=== PATIENT | male | born 1950 | race Caucasian/White ===

== ENCOUNTER 2017-04-08 06:45 | Inpatient (IN) | payer MEDICARE, BC ==
[~2017-04-08] VITALS: Ht 185.4 cm; Wt 99.0 kg
--- NOTE | ~2017-04-08 | HP ---
History And Physical [id number] [place]. [address] NAME: ANDREW GOODRICH : 46 STATUS : ADM IN [facility]#: [id number] AGE: 66 ADM/REG DATE : 04/08/17 MR#: [id number] REPORT SERV DATE: 04/09/17 DICTATED BY: LOLITA TEIXEIRA DATE: 04/09/17 REPORT STATUS : Draft TRANSCRIBED BY: KEVIN DATE: 04/09/17 DATE OF ADMISSION: 04/08/2017 CHIEF COMPLAINT: Back pain. HISTORY OF PRESENT ILLNESS: Andrew Goodrich is a 66-year-old patient, whom fell on 04/05/2017 from the second to top rung of a 6 feet ladder while he was cleaning his RV. He laid down his back, had immediate and severe back pain. Still has bilateral leg pain. He has not been able to stand since then, was transported emergently to [facility], where he was found to have an L3 burst fracture. He is on Coumadin. His INR has been elevated. They have been working on getting his INR down to a therapeutically appropriate level for surgery, and was subsequently transferred for surgical intervention. At the time of my examination, the patient tells me he is able to urinate. He has had prostate surgery, so has some underlying difficulty related to that. He denies bowel dysfunction. REVIEW OF SYSTEMS: A 10-point review of systems, again unclear about bowel and bladder function. Positive for back and leg pain. PAST MEDICAL HISTORY: 1. Hypertension. 2. Coronary artery disease, status post WA as well as CABG. 3. Prostate cancer status post surgery and radiation therapy. 4. History of DVT, currently treated with Coumadin. PAST SURGICAL HISTORY: As above. Also includes appendectomy and right shoulder surgery. HOME MEDICATIONS: Coreg, Xanax, lisinopril, Coumadin 7.5 mg a day, Lipitor, coenzyme, Percocet, Cymbalta, and Mirapex. SOCIAL HISTORY: Smokes two or three cigars a day. Rarely drinks. Does not use drugs. I believe he is retired. FAMILY HISTORY: Positive for heart disease. ALLERGIES: ALLERGIC TO PENICILLIN. PHYSICAL EXAMINATION: VITAL SIGNS: The patient is 6 feet 1 inch, 218 pounds. Temperature 99.8, heart rate 89, respiratory rate 18, and blood pressure 155/70. ORTHOPEDIC EXAMINATION: Reveals tenderness in the back, in the mid lumbar region. There is no bogginess or step-off; however, the skin is intact. NEUROLOGIC: Reveals symmetric pin prick and light touch in both legs; however, he does have weakness in both hip flexors and quads, 3/5 bilaterally, ankle, dorsiflexion, plantar flexion as well as EHL is 4 to 5/5. He does have positive straight leg raise bilaterally causing leg pain, has hypoactive patellar and Achilles reflexes. He has normal sensation in History And Physical [address] [address] NAME: ANDREW GOODRICH : 46 STATUS : ADM IN [facility]#: [id number] AGE: 66 ADM/REG DATE : 04/08/17 MR#: [id number] REPORT SERV DATE: 04/09/17 DICTATED BY: LOLITA TEIXEIRA DATE: 04/09/17 REPORT STATUS : Draft TRANSCRIBED BY: KEVIN DATE: 04/09/17 the peroneal region. LABORATORY TESTS: This morning show an INR of 1.2 and a hematocrit of 43.4. Recent x-rays were reviewed and showed a what appears to be a burst fracture of L3 vertebral body with fragmentation of the body. Recent MRI confirms this. There is traumatic retropulsion of bone into the canal occupying 80% to 90% of the canal. IMPRESSION AND PLAN: L3 burst fracture with severe canal compromise as well as weakness in the hips and the quads. Plan: L3 corpectomy with reconstruction with cage as well as plate. Depending on bone quality, he may require stage II with posterior instrumentation. Procedure risks, benefits, and alternatives were discussed with him. Risks discussed include, but not limited to bleeding, infection, neurologic injury including injury to the spinal cord and nerve roots. Collapse of the cage requiring posterior instrumentation and revision. Spinal fluid leaks, deep hematoma seroma. Injury to the great vessels as well as viscera from the approach. Position complication such pressures sores, nerve palsies, eye injury, and medical complications such as heart attack, strokes, blood clots, pneumonia, and . Informed consent was obtained. DUONG Lolita Teixeira MD / [id number] CC: Bong Ray M.D.
--- NOTE | ~2017-04-08 | OP ---
Record Of Operation [facility] [address] [place]. [address] NAME: ANDERW GOODRICH : 46 STATUS : ADM IN PAT#: [id number] AGE: 66 ADM/REG DATE : 04/08/17 MR#: [id number] REPORT SERV DATE: 04/10/17 DICTATED BY: LOLITA TEIXEIRA DATE: 04/10/17 REPORT STATUS : Draft TRANSCRIBED BY: MODL DATE: 04/10/17 DATE OF PROCEDURE: PREOPERATIVE DIAGNOSIS: L3 burst fracture with critical stenosis. POSTOPERATIVE DIAGNOSIS: L3 burst fracture with critical stenosis. PROCEDURE: 1. L3 corpectomy with spinal canal decompression. 2. Body reconstruction with a cage. 3. Anterior plate fusion. 4. Local bone graft admixed with synthetic bone graft. 5. Navigation-assisted procedure. CO-SURGEON: Dr. Pineda. ASSISTANTS: Jordan and Santiago. FLUIDS: 2800 mL LR, 250 mL of Cell Saver packed red blood cells. BLOOD LOSS: 500 mL. URINE OUTPUT: 150 mL. ANESTHESIA: General. INSTRUMENTATION: Globus Fortify cage with a 20 mm core; 41-64 mm in height with upper end plate measuring 22 x 40 mm, 4-degree lordosis; lower plate 22 x 40 also with 4-degree lordosis. Local bone graft admixed with Kinex Bioactive putty to be packed in and around the cage, Synthes plate 7-8 mm TSLP with two 5.5 x 39 mm screws anteriorly and two 5.5 x 45 mm posteriorly. INDICATIONS: Andrew Goodrich is a 66-year-old patient who fell from the top of a 6-foot ladder several days ago sustaining an L3 burst fracture. He was unable to walk due to leg pain and weakness immediately thereafter. Imaging has showed significant stenosis at L3-4. He has been in an outside hospital for several days prior to the surgery due to the canal compromise as well as neurologic signs and symptoms. The patient was indicated for an L3 decompression in the form of an anterior approach. I felt that given the injury there was a good chance the patient had good bone density. Intraoperatively, I verified this I recommend a corpectomy with cage reconstruction and plating. The procedure as well as the risks and alternatives were discussed with him and his . I suggested the aid of a vascular surgeon during approach to minimize the risk risk related to the approach including major vascular injury causing life-threatening bleeding, visceral injury causing infection or ileus. Bleeding requiring transfusion. Nerve injury including nerve root or cauda equina syndrome. Spinal fluid leaks. Nonunion and malunion, adjacent level of disease, subsidence of the cage requiring Record Of Operation [address] [place]. [address] NAME: ANDREW GOODRICH : 46 STATUS : ADM IN PAT#: [id number] AGE: 66 ADM/REG DATE : 04/08/17 MR#: [id number] REPORT SERV DATE: 04/10/17 DICTATED BY: LOLITA TEIXEIRA DATE: 04/10/17 REPORT STATUS : Draft TRANSCRIBED BY: KEVIN DATE: 04/10/17 revision with posterior instrumentation. Position complication such as pressure sores, nerve palsies, blindness, medical complications such as heart attack, strokes, blood clots, pneumonia, and . Informed consent obtained. DESCRIPTION OF PROCEDURE: The patient was identified in the holding room and surgery as well as risks and alternatives were discussed with them. He is taken back to the operating room, where all standard cardiopulmonary monitors were attached. After smooth induction general endotracheal anesthesia, he was very carefully positioned in a right lateral decubitus position with the left side up. A bump was placed underneath his flank and an axillary roll was placed. This is a true lateral position and this was verified with fluorography. He was taped at the shoulder and hips as well as the legs. The flank and abdomen as well as back were prepped and draped in the usual sterile surgical fashion. Biplanar fluoro imaging were brought and the incision site was then marked. The approach was then performed by Dr. Pineda and his facilities assistant. Please see his note for that. Excellent exposure was obtained of the L3 body as well as the inferior L2 and the superior L4 bodies for the plate placement. At this point, a small incision was then made in the lateral iliac crest. The navigation post was then used to dissect down to the lateral iliac crest, it was impacted, and bicortical purchase was obtained, and the ray was then placed on the post and the O-arm was brought in for a spin. With the aid of the navigation probe, I defined the outlines of my corpectomy as well as . A 15 blade was then used to outline my disk spaces above and below the L3. Thorough diskectomy was performed at both levels with a combination of pituitary rongeurs and curettes. I got back as far as I could safely and navigation assisted me telling me where the spinal canal was. At this point, I outlined the anterior vertebral body and then about 5 mm posterior to it with an osteotome. I used an osteotome to cut the bone to leave an anterior shell. I impacted this down to about 40 mm, which is what my navigation allowed me to do safely. I then took the osteotome, cut the posterior body just anterior to the posterior cortex. This chunk in the midline was then removed with a rongeur, given to the back table to morcellize after placing in the cage. I continued my trough out in the middle till I got down to the contralateral pedicle. Again I was able tell this with my navigation. I then carefully expose the back of the wall as well as the foramina, resected the L3 pedicle on the up side with a Kerrison punch. At this point, I very carefully began to tease the posterior cortical shell anteriorly with a combination of curettes and [place]. I pulled the posterior fragment into the space I created with corpectomy all the way down to the contralateral pedicle. Excellent decompression was obtained. The bleeding was controlled with combination of bipolar cautery as well as Gelfoam and thrombin and Fibrillar. Thus, my corpectomy space was created. I then sized the space, found a 41-64 to be an excellent fit. Appropriately sized end plates were then placed. The final device was then assembled on the back table. Bone was packed into the center. It was then impacted into place. Biplanar fluoro imaging was brought in and I adjusted the position slightly based on the fluoro to a center position. It was dilated just to a finger type position to avoid subsidence into the endplates. Biplanar fluoro confirmed excellent position. I then did a small amount of carpentry removing lateral osteophytes placing my 70 mm plate with the curve moving forward. Provisional pins were placed above and below to allow the plate to sit in place. I then awl-ed the remaining two opening holes and placed a screw superiorly and inferiorly. Biplanar fluoro imaging was brought in to confirm good position as well as length. I then proceeded by placing two posterior screws above and below measuring 45 in length by 5.5 in diameter. The anterior Record Of Operation [facility] [address] [place]. [address] NAME: ANDREW GOODRICH : 46 STATUS : ADM IN PAT#: [id number] AGE: 66 ADM/REG DATE : 04/08/17 MR#: [id number] REPORT SERV DATE: 04/10/17 DICTATED BY: LOLITA TEIXEIRA DATE: 04/10/17 REPORT STATUS : Draft TRANSCRIBED BY: MODErnestine DATE: 04/10/17 screws were 5.5 x 39 mm. Biplanar fluoro imaging was brought in confirming excellent position of the screws as well as length. They were final tightened and torqued into place. Prior to placing the plate, I should note that I packed the anterior and lateral cage with remaining bone graft and substitute. At this point, the wound was very thoroughly irrigated. Hemostasis was excellent and Dr. Pineda took over as far as the wound closure goes, see his note for that. Once the wound was closed, dressings were placed. The patient was sent to recovery room without any problems or complications. DAHIANA/KEVIN Lolita Teixeira MD / [id number] CC: Bong Ray M.D.
--- NOTE | ~2017-04-08 | DS ---
Discharge Summary [facility] [address] [place]. [address] NAME: ANDREW GOODRICH : 46 STATUS : DIS IN PAT#: [id number] AGE: 66 ADM/REG DATE : 04/08/17 MR#: [id number] REPORT SERV DATE: 04/14/17 DICTATED BY: Enrique BROWN DATE: 04/13/17 REPORT STATUS : Draft TRANSCRIBED BY: MODL DATE: 04/13/17 ADMISSION DATE: 04/08/2017 DISCHARGE DATE: 04/13/2017 The patient was admitted to the Hospitalist Service initially. CONSULTANTS: 1. Dr. Teixeira, Ortho Spine. 2. Dr. Pineda, Vascular Surgery. DISCHARGE DIAGNOSES: 1. L3 burst fracture with severe canal compromise status post L3 corpectomy with spinal canal decompression. 2. Hypertension. 3. History of chronic atrial fibrillation, on warfarin. 4. Hyperlipidemia. 5. History of prostate cancer. 6. Anxiety and depression. PROCEDURES: On 04/10/2017, the patient underwent L3 corpectomy with spinal canal decompression, body reconstruction with a cage, anterior plate fusion, local bone graft mixed with synthetic bone graft per Dr. Teixeira and Dr. Pineda. IMAGING AND DIAGNOSTICS: 1. 04/06/2017, MRI of the L-spine revealed compression fracture deformity at L3, insufficiency type fracture S1 and L1. 2. 04/05/2017, lumbar spine x-ray, no spondylolisthesis of the L-spine, moderate facet joint arthropathy from L4 through S1 with osteophyte formation at L3 and L4, decreased vertebral body height at L3 is seen which is new since CT of the abdomen, 02/25/2017, finding suggestive of compression fracture at L3 with 50% loss of vertebral body height. 3. Pelvis x-ray, negative AP pelvis. 4. 04/10/2017, portable chest x-ray, no acute cardiopulmonary disease identified. 5. 04/11/2017, lumbar spine, satisfactory postop appearance of lumbar spine. HISTORY OF PRESENT ILLNESS: For complete history, please refer to admission H and P by Dr. Boogie Edwards at [facility]. Briefly, Mr. Goodrich is a pleasant 66-year-old gentleman, who presented to the emergency room with a chief complaint of back pain. He states that he was cleaning the top of his camper and he fell off approximately 6 foot ladder, landing on his back with a sudden onset of back pain that radiated down both of his legs. The pain was so severe, he needed assistance getting up. He presented to the emergency room for further evaluation and treatment. In the emergency room, he was noted to have a burst fracture of L3 spine. Dr. Xiao was contacted. The patient was initially admitted to the [facility]. He was transferred to [facility] on 04/08/2017 for admission here and likely surgery. He was admitted to the Hospitalist Service at the [facility] and seen in consultation by Dr. Teixeira. He was made n.p.o. after Discharge Summary [address] [place]. [address] NAME: ANDREW GOODRICH : 46 STATUS : DIS IN PAT#: [id number] AGE: 66 ADM/REG DATE : 04/08/17 MR#: [id number] REPORT SERV DATE: 04/14/17 DICTATED BY: Enrique BROWN DATE: 04/13/17 REPORT STATUS : Draft TRANSCRIBED BY: KEVIN DATE: 04/13/17 midnight on 04/08/2017. However, he was seen by Dr. Teixeira on 04/09/2017 with his surgical procedure on 04/10/2017. Postoperatively, Mr. Goodrich had hypotension and a decreased urine output, therefore, he was transferred to ICU postoperatively under the care of the twisting frame operator. By the morning of the , he was off his pressors and his postop hypotension had resolved. On 04/10/2017, he was transferred back to the orthopedic floor under the care of the hospitalist. Over the next few days, he continued to progress nicely. His diet was advanced slowly. His Ramirez catheter was removed and he was up with physical therapy. I initially saw the patient for the first time on 04/13/2017, his date of discharge. He was lying in bed. His was at his bedside. He was in no acute distress. His vital signs were stable with an elevated blood pressure. His blood pressure medications were placed on hold postoperatively and restarted earlier today. He reported that he was up ambulatory in the hallway earlier with physical therapy. I informed Mr. Goodrich and his that he had been medically and financially approved to transfer to [facility] later today for further rehabilitation. Mr. Goodrich and his were in agreement with this plan of care. On exam he was alert and oriented. No focal deficits. Lungs are clear to auscultation bilaterally. Normal respiratory effort. Regular rate and rhythm. No murmurs, rubs, or gallops. Abdomen is soft, nontender. Active bowel sounds. Peripheral pulses easily palpable with no edema, cyanosis, or clubbing. His left flank and back dressing was intact with a scant amount of dried serosanguineous drainage. He was seen earlier in the day by Dr. Pineda and Dr. Teixeira. Both physicians were notified of the patient's transfer to [facility] today. DISCHARGE INSTRUCTIONS: 1. Diet: As tolerated with Ensure supplements three times a day. 2. Activity: PT and OT evaluate and treat. 3. Discharge Medications:. a. Lipitor 20 mg p.o. daily. b. Carvedilol 6.25 mg p.o. b.i.d. c. CoQ10 200 mg p.o. at bedtime. d. Cymbalta 30 mg p.o. b.i.d. e. Lovenox 40 mg subcu daily, discontinue after dose on 04/15/2017. f. Lisinopril 10 mg p.o. daily at bedtime. g. Mirapex 0.125 mg p.o. at bedtime. h. Coumadin to resume today, 7.5 mg p.o. Wednesday, Wednesday, Wednesday, , Wednesday, Wednesday. i. Roxicodone 10 mg p.o. q.4 hours while awake p.r.n. j. Tylenol 650 mg p.o. or p.r. q.4 hours p.r.n. k. Mylanta 30 mL p.o. p.r.n. l. Xanax 1 mg p.o. b.i.d. p.r.n. m. Dulcolax 10 mg suppository p.r.n. n. Dulcolax tablets 15 mg p.o. p.r.n. o. Valium 5 mg p.o. q.4 hours p.r.n. p. Milk of magnesia 30 mL p.o. b.i.d. p.r.n. q. MiraLAX one to two packets p.o. p.r.n. daily. r. Fleet's enema p.r.n. s. PreserVision softgel caps one capsule p.o. b.i.d. Discharge Summary [place] [address] [place]. [address] NAME: ANDREW GOODRICH : 46 STATUS : DIS IN PAT#: [id number] AGE: 66 ADM/REG DATE : 04/08/17 MR#: [id number] REPORT SERV DATE: 04/14/17 DICTATED BY: Enrique BROWN DATE: 04/13/17 REPORT STATUS : Draft TRANSCRIBED BY: KEVIN DATE: 04/13/17 Other discharge instructions include, Mr. Goodrich will follow up with his primary care provider, Dr. Leal after discharge from rehab and he will also follow up postoperatively as scheduled with Dr. Teixeira. He will have a daily PT/INR at [facility] with INR goal of 2-3 with his Coumadin being resumed today. My collaborating physician on this patient was Dr. Chase Brown. ROCIO/KEVIN Elaine Fernandes [facility] Enrique Brown M.D. / [id number] CC: Bong Andre M.D. James Allan Ulibarri, MD Larry Sprouse II, M.D.
--- NOTE | ~2017-04-08 | OP ---
Record Of Operation [facility] [address] [place]. [address] NAME: ANDREW SANCHEZ : 46 STATUS : DIS IN PAT#: [id number] AGE: 66 ADM/REG DATE : 04/08/17 MR#: [id number] REPORT SERV DATE: 04/14/17 DICTATED BY: LENORA ROBERTS II DATE: 04/14/17 REPORT STATUS : Draft TRANSCRIBED BY: MODL DATE: 04/14/17 DATE OF PROCEDURE: 04/09/2017 SECOND ATTENDING CO-SURGEON: Jani Teixeira MD PREOPERATIVE DIAGNOSIS: L3 fracture. POSTOPERATIVE DIAGNOSIS: L3 fracture. PROCEDURES: 1. Lateral retroperitoneal exposure from L2-L4. 2. L3 corpectomy with diskectomy at L2-L3, L3-L4 with placement of interbody device and instrumentation. ANESTHESIA: General. Please note, I am a co-surgeon. I am dictating a portion of the note. The remaining portion is found in a note by Dr. Teixeira. DETAILS OF THE PROCEDURE: The patient was taken to the operating room, placed in supine position on the table. General anesthesia was achieved. He was placed in the left lateral decubitus position, and the left flank and abdomen were prepped and draped in a sterile fashion. Protective padding was placed. We made an incision between the 11th and 12th rib. We divided the subcutaneous tissues with electrocautery. We carried this down to the tip of the 12th rib and partially resected this. We entered into the preperitoneal space and then bluntly dissected into the retroperitoneal space and swept the peritoneum, the ureter, and abdominal contents to the right to expose the psoas muscle and lateral aorta. The ileal lumbar vein was ligated with 2-0 silk suture. We then carefully dissected along the anterior portion of the psoas muscle. Identified the segmental vessels at L2-L3, L3-L4, and L4-L5, and we ligated these with 2-0 silk suture. With continued careful dissection, we completely mobilized the vessels as well as the psoas muscle and we exposed the vertebral bodies and disk space at L3. We marked this with fluoroscopy. A diskectomy/corpectomy was performed with placement of interbody device and instrumentation. Please see Dr. Teixeira's notes for details of this. Once x-ray confirmed adequate placement, we inspected the retroperitoneum. It was hemostatic. The ureter was intact. Remaining retroperitoneal structures were intact. We ensured hemostasis, and then we removed the retractors and allowed the abdominal contents to return to their normal anatomic position. We closed the posterior fascia with a running Vicryl suture and closed the anterior fascia with PDS, and the skin was closed with joel. 3-0 Vicryl were placed in the subdermal tissue. A sterile bandage was applied. At the end of the procedure, the patient was stable. He had tolerated it well. /[facility] Record Of Operation [facility] [address] [place]. [address] NAME: ANDREW SANCHEZ : 46 STATUS : DIS IN PAT#: [id number] AGE: 66 ADM/REG DATE : 04/08/17 MR#: [id number] REPORT SERV DATE: 04/14/17 DICTATED BY: LENORA ROBERTS II DATE: 04/14/17 REPORT STATUS : Draft TRANSCRIBED BY: MODL DATE: 04/14/17 Lenora Roberts II, M.D. / [id number] CC: Bong Lambert II, M.D.
[~2017-04-08 06:45] MED LIST: ASAB PO; ASABAYER PO; CEFT5 PO; CO Q-10100 MG PO; CO Q-10200 MG PO; COREG3 PO; COREG6 PO; COUMADIN7.5 MG PO; CYMBALTA30 PO; ENDOCET1 TA3 PO; EPIPEN0.3 IM; FLEX PO; GLUCPH PO; IMDUR30 PO; KLONO1 PO; LIPITOR20 PO; MIRAPEX125 PO; NORCO1 TA1 PO; PERCOCET 10/3251 TAB PO; PERCOCET1 TA4 PO; PRESERVISION A1 EACH PO; PRIN10 PO; PRIN2.5 PO; TOPXL100 PO; XANAX XR1 MG PO; XANAX1 MG PO; ZOCOR40 PO
[2017-04-09 14:52] LABS: HEMATOCRIT 32.2 % (40.0-51.0)
[2017-04-09 18:27] LABS: BUN (BLOOD UREA NITROGEN) 23 MG/DL (6-23); CALCIUM, SERUM 8.3 MG/DL (8.5-10.4); CHLORIDE, SERUM 104 MMOL/L (96-112); CO2 (CARBON DIOXIDE) 27 MMOL/L (24-34); GFR AFRICAN AMERICAN 120 ML/MIN (>=60); GFR NON AFRICAN AMERICAN 103 ML/MIN (>=60); GLUCOSE, SERUM 158 MG/DL (60-99); POTASSIUM, SERUM 4.5 MMOL/L (3.5-5.3); SODIUM, SERUM 137 MMOL/L (135-148)
[2017-04-10 04:25] LABS: BASOPHILS 0 %; EOSINOPHILS 0 %; HEMOGLOBIN 10.8 g/dL (13.6-17.8); HEMOGLOBIN 10.9 g/dL (13.6-17.8); IMMATURE GRANULOCYTES 0.2 %; IMMATURE GRANULOCYTES ABSOLUTE 0.02 10/3/uL (0.0-0.11); LYMPHOCYTES 8.8 %; LYMPHOCYTES ABSOLUTE 0.94 10/3/uL (0.67-4.30); MANUAL DIFF NO %; MEAN CORPUS HGB CONC 33.8 g/dL (32.0-36.0); MEAN CORPUSCULAR HEMOGLOB 30.4 pg (26.0-34.0); MEAN CORPUSCULAR VOLUME 90.1 fL (80-100); MEAN PLATELET VOLUME 9.7 fL (9.2-13.0); MONOCYTES 10.5 %; MONOCYTES ABSOLUTE 1.12 10/3/uL (0.21-1.20); NEUTROPHILS 80.5 %; NEUTROPHILS ABSOLUTE 8.58 10/3/uL (2.02-8.40); PLATELET COUNT 151 10/3/uL (150-400); RBC DISTRIBUTION WIDTH 14.7 % (12.0-16.0); RED CELL COUNT 3.55 10/6/uL (4.7-6.1); WHITE BLOOD CELLS 10.7 10/3/uL (4.5-10.5)
[2017-04-10 04:38] LABS: ALBUMIN 2.7 G/DL (3.5-5.0); BUN (BLOOD UREA NITROGEN) 24 MG/DL (6-23); CALCIUM, SERUM 7.9 MG/DL (8.5-10.4); CHLORIDE, SERUM 105 MMOL/L (96-112); CO2 (CARBON DIOXIDE) 29 MMOL/L (24-34); CREATININE 0.81 MG/DL (0.70-1.30); GFR AFRICAN AMERICAN 106 ML/MIN (>=60); GFR NON AFRICAN AMERICAN 91 ML/MIN (>=60); SODIUM, SERUM 139 MMOL/L (135-148)
[2017-04-10 04:39] LABS: GLUCOSE, SERUM 125 MG/DL (60-99); PHOSPHORUS, SERUM 2.1 MG/DL (2.5-4.5)
[2017-04-11 05:33] LABS: BASOPHILS 0 %; EOSINOPHILS 0.4 %; EOSINOPHILS ABSOLUTE 0.04 10/3/uL (0.0-0.53); HEMATOCRIT 30.5 % (40.0-51.0); HEMOGLOBIN 10.5 g/dL (13.6-17.8); IMMATURE GRANULOCYTES 0.4 %; IMMATURE GRANULOCYTES ABSOLUTE 0.04 10/3/uL (0.0-0.11); LYMPHOCYTES 6.3 %; LYMPHOCYTES ABSOLUTE 0.58 10/3/uL (0.67-4.30); MEAN CORPUS HGB CONC 34.4 g/dL (32.0-36.0); MEAN CORPUSCULAR HEMOGLOB 30.5 pg (26.0-34.0); MEAN CORPUSCULAR VOLUME 88.7 fL (80-100); MEAN PLATELET VOLUME 9.1 fL (9.2-13.0); MONOCYTES 11.6 %; MONOCYTES ABSOLUTE 1.07 10/3/uL (0.21-1.20); NEUTROPHILS 81.3 %; NEUTROPHILS ABSOLUTE 7.49 10/3/uL (2.02-8.40); PLATELET COUNT 138 10/3/uL (150-400); RED CELL COUNT 3.44 10/6/uL (4.7-6.1); WHITE BLOOD CELLS 9.2 10/3/uL (4.5-10.5)
[2017-04-11 05:46] LABS: MANUAL DIFF NO %
[2017-04-11 05:56] LABS: CALCIUM, SERUM 8.1 MG/DL (8.5-10.4); CHLORIDE, SERUM 103 MMOL/L (96-112); CO2 (CARBON DIOXIDE) 31 MMOL/L (24-34); CREATININE 0.46 MG/DL (0.70-1.30); GFR AFRICAN AMERICAN 134 ML/MIN (>=60); GFR NON AFRICAN AMERICAN 115 ML/MIN (>=60); GLUCOSE, SERUM 145 MG/DL (60-99); PHOSPHORUS, SERUM 1.7 MG/DL (2.5-4.5); POTASSIUM, SERUM 3.4 MMOL/L (3.5-5.3); SODIUM, SERUM 139 MMOL/L (135-148)
[2017-04-11 05:58] LABS: BUN (BLOOD UREA NITROGEN) 16 MG/DL (6-23)
[2017-04-13 15:51] LABS: BUN (BLOOD UREA NITROGEN) 16 MG/DL (6-23); CALCIUM, SERUM 8.4 MG/DL (8.5-10.4); CHLORIDE, SERUM 104 MMOL/L (96-112); CO2 (CARBON DIOXIDE) 28 MMOL/L (24-34); CREATININE 0.55 MG/DL (0.70-1.30); GFR AFRICAN AMERICAN 124 ML/MIN (>=60); GFR NON AFRICAN AMERICAN 107 ML/MIN (>=60); GLUCOSE, SERUM 135 MG/DL (60-99); POTASSIUM, SERUM 3.5 MMOL/L (3.5-5.3); SODIUM, SERUM 141 MMOL/L (135-148)
[2017-04-13 15:53] LABS: PHOSPHORUS, SERUM 2.3 MG/DL (2.5-4.5)
== END 2017-04-13 21:00 | DRG 459 ==
LOC: ENRESERVTM → ENRESERVDT → ENRESERV → 1SO 19:32 → 3SO 19:32 → CCU 19:32 → 1SO 21:17 → CCU 04-09 16:24 → 3SO 04-10 15:23
PROVIDERS: Internal Medicine; Nurse Practitioner; Orthopaedic Surgery Orthopaedic Surgery of the Spine
PROC: 0SG00A0 Fusion of Lumbar Vertebral Joint with Interbody Fusion Device, Anterior Approach, Anterior Column, Open Approach (ICD-10-PCS; principal; 2017-04-09 06:45)
PROC: 0SB20ZZ Excision of Lumbar Vertebral Disc, Open Approach (ICD-10-PCS; 2017-04-09 06:45)
DX: S32.031A Stable burst fracture of third lumbar vertebra, initial encounter for closed fracture (principal); S34.103A Unspecified injury to L3 level of lumbar spinal cord, initial encounter; I10 Essential (primary) hypertension; I25.2 Old myocardial infarction; I25.10 Atherosclerotic heart disease of native coronary artery without angina pectoris; F17.290 Nicotine dependence, other tobacco product, uncomplicated; W11.XXXA Fall on and from ladder, initial encounter; E83.39 Other disorders of phosphorus metabolism; I95.81 Postprocedural hypotension; I48.2 Chronic atrial fibrillation; F41.9 Anxiety disorder, unspecified; F32.9 Major depressive disorder, single episode, unspecified; Z95.1 Presence of aortocoronary bypass graft; Z85.46 Personal history of malignant neoplasm of prostate; Z92.3 Personal history of irradiation; Z86.718 Personal history of other venous thrombosis and embolism; Z79.01 Long term (current) use of anticoagulants; Z88.0 Allergy status to penicillin
CPT/HCPCS: 36415; 71010; 72100; 80048; 80069; 82962; 83735; 84100; 85014; 85018; 85025; 86850; 86900; 86901; 86920; 87641; 93005; 94640; 97116-GP; 97161-GP; 97530-GP; A9270-GY; C1713; C9359; G8978-CL-GP; G8979-CL-GP; G8980-CL-GP; J0330; J0690; J1644; J2250; J2270; J2370; J2405; J3010; J3475; P9045